=== PATIENT | female | born 1965 | race Caucasian/White ===

== ENCOUNTER 2023-04-19 18:38 | Emergency (ER) | payer BC, SELFPAY ==
[2023-04-19 18:40] VITALS: BP 184/103
[2023-04-19] MEDS: DECADRON 10 MG PO (19:06)
[2023-04-19 19:10] VITALS: BP 129/85
[2023-04-19 20:00] VITALS: BP 117/86
--- NOTE | 2023-04-19 20:31 | ED.GENMED ---
History of Present Illness
General
Chief Complaint: Allergic Reaction
Source: patient and spouse
Exam Limitations: none
Time Seen by Provider: 04/19/23 18:54
Nursing documentation reviewed up to this point in time: agreed with
Travel History
Have you had any contact with someone who has COVID-19?: No
Do you have any symptoms of coronavirus? Fever > 100 degrees, chills, cough, shortness of breath, sore throat, loss of taste or smell, muscle aches, or headache?: No
History of Present Illness
History of Present Illness:
57-year-old female and has been stung many times in the past but never had a reaction. She was stung directly on her lip through her face guard. Denies any trouble swallowing or breathing denies any lightheadedness denies any just diffuse rash.
Took Benadryl Claritin and famotidine prior to arrival. Presenting to the emergency department today with concerns of lip swelling that is been ongoing for 4 and half hours prior to arrival after being stung by a bee. She claims that she is a
Past History
Past History
ED Past Medical History: None
ED Past Surgical History: None
Social History
Tobacco: Non-smoker
Personal:
Living: with family
Review of Systems
Review of Systems
Allergies reviewed?: Yes
All Other Systems: ROS reviewed and negative except as documented in HPI and ROS
Phy Exam
Physical Exam
Physical Exam:
GENERAL: Alert , in no apparent distress
EYE: pupils equal and reactive
NECK: Supple, no significant adenopathy.
ENT: Swelling to the anterior upper lip no extension into the deeper oral mucosa no swelling of the tongue or posterior pharynx. Some mild swelling to zygomatic region. o/p clr, mmm.
CARDIAC: Regular rate and rhythm .
LUNGS: Clear breath sounds bilaterally, no acute respiratory distress, no wheezes/rales/rhonchi
ABDOMEN: Soft, without focal tenderness, no r/g, no cvat
NEUROLOGICAL: Alert and oriented, no focal neuro deficits
SKIN: Warm and dry, skin intact.
MUSCULOSKELETAL: No edema, well perfused.
PSYCH: Normal and appropriate interaction.
Course
Orders/Labs/Results
Orders:
Orders
04/19/23 19:01
Dexamethasone [Decadron] 10 mg PO NOW STA
Vital Signs
Initial and Last Documented VS:
Initial Vital Signs
Temp Pulse Resp BP Pulse Ox
98.2 F 75 18 184/103 98
04/19/23 18:40 04/19/23 18:40 04/19/23 18:40 04/19/23 18:40 04/19/23 18:40
Last Documented Vital Signs
Temp Pulse Resp BP Pulse Ox
98.2 F 75 18 184/103 98
04/19/23 18:40 04/19/23 18:40 04/19/23 18:40 04/19/23 18:40 04/19/23 18:40
MDM/Problems Addressed
MDM/Problems Addressed:
57-year-old female presenting to the emergency department today with concerns of lip swelling after being stung by bee directly on the lip. 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
This occurred roughly 6 hours prior to arrival and prior to my assessment. Patient generally well-appearing lungs are clear vital signs normal no lightheadedness blood pressure was elevated but improving here. Normal posterior pharynx no diffuse
rash no evidence of anaphylaxis at this time. Was given steroid and watched for another hour with improvement of symptoms. She otherwise appear stable for outpatient management advised for close outpatient follow-up and written for an EpiPen for
any potential subsequent exposures in the future.
*Critical Care Note
Total Time (30-74mins, 75-104mins- exclusive of procedures): Not Applicable
ED Attending Note
-
Portions of this chart may have been created with voice recognition software.� Occasional wrong word or��sound alike� substitutions may have occurred due to the inherent limitations of voice recognition software.
Discharge Plan
Departure
Patient Disposition: Home (Routine Discharge)
Date of Disposition: 04/19/23
Time of Disposition: 20:34
Patient with high blood pressure during this ER visit?: Yes
Condition: Good
Covid-19: Not Applicable
Discharge Problem:
Allergic reaction
Instructions: Insect Bites and Stings (DC), BLOOD PRESSURE
Prescriptions:
New
prednisone 20 mg tablet
40 mg PO DAILY 4 Days Qty: 8 0RF
famotidine 20 mg tablet
20 mg PO BID 4 Days Qty: 8 0RF
cetirizine [Zyrtec] 10 mg tablet
10 mg PO BID 4 Days Qty: 8 0RF
epinephrine [EpiPen 2-Dat] 0.3 mg/0.3 mL auto-injector
0.3 mg IM Q5-15M PRN (Reason: anaphylaxis) Qty: 2 0RF
No Action
nitrofurantoin monohyd/m-cryst 100 MG capsule
100 mg PO BID Qty: 14 0RF
omeprazole 40 MG capsule,delayed release(DR/EC)
40 mg PO DAILYPRN PRN (Reason: acid reflux)
multivitamin with folic acid [Tab-A-Julian] 1 TABLET tablet
1 tab PO DAILY
Referrals:
Jamie Mckee MD [Family Provider] -
Activity Restrictions/Additional Instructions:
You came to emergency department today with concerns of potential allergic reaction. You were given steroid here without worsening of symptoms. No signs of life-threatening symptoms at this time. Please take the medications as prescribed and have
epi pen available moving forward. Please closely for further assessment. Return to the emergency department for any worsening, new or concerning symptoms.
Interventions
Interventions:
*General Assessment Last Done: 04/19/23 19:10
[2023-04-19] MEDS: BENADRYL 50 MG PO (20:49)
== END 2023-04-19 20:55 | disposition home or self-care (01) ==
LOC: EMR 18:38
PROVIDERS: EMERGENCY PHYSICIAN Emergency Medicine; FAMILY PHYSICIAN Family Medicine
DX: T63.441A Toxic effect of venom of bees, accidental (unintentional), initial encounter (principal); R22.0 Localized swelling, mass and lump, head
CPT/HCPCS: 99283

== ENCOUNTER → 2023-06-20 07:20 | Outpatient (REF) | payer BC, SELFPAY | LOC: RAD 07:20 | PROVIDERS: ATTENDING PHYSICIAN Obstetrics & Gynecology; FAMILY PHYSICIAN Family Medicine | DX: N93.0 Postcoital and contact bleeding (principal) | CPT/HCPCS: 76830; 76856 ==

== ENCOUNTER 2023-09-24 09:35 | Emergency (ER) | payer BC, SELFPAY ==
[2023-09-24 09:37] VITALS: BP 150/97
--- NOTE | 2023-09-24 10:03 | ED.GENMED ---
History of Present Illness
General
Chief Complaint: Rabies
Source: patient
Time Seen by Provider: 09/24/23 09:52
History of Present Illness
History of Present Illness:
57-year-old female presenting to the emergency department for evaluation of possible rabies exposure noting last night while putting away a pool cover either a bird or bat flew out and in to her hair/head. Patient states it was dark out so she is
unsure as to what the animal was. She has no other concerns at this time. States she is concerned enough that it could have been a bat so would like rabies prophylaxis
Past History
Past History
ED Past Medical History: None
ED Past Surgical History: None
Social History
Tobacco: Non-smoker
Alcohol: Occasional
Drug: None
Personal:
Living: with family
Review of Systems
Review of Systems
All Other Systems: ROS reviewed and negative except as documented in HPI and ROS
Phy Exam
Physical Exam
Physical Exam:
GENERAL: Alert , in no apparent distress
EYE: conjunctiva clear
Head: Normocephalic atraumatic
NECK: Supple,
ENT: mmm.
LUNGS: no acute respiratory distress
NEUROLOGICAL: Alert and oriented
SKIN: Warm and dry, skin intact.
MUSCULOSKELETAL: well perfused.
PSYCH: Normal and appropriate interaction.
Scores
Heart Failure Risk
Heart Failure Risk Score: Not Applicable
Heart Score for Chest Pain Patients
STEMI patient?: Not applicable
Withdrawal Assessment of Alcohol
Withdrawal Assessment Completed?: Not applicable
Course
Orders/Labs/Results
Orders:
Orders
09/24/23 10:08
Rabies Immune Globulin/Pf [HyperRAB] 1,470 unit IM NOW STA
09/24/23 10:15
Rabies Vaccine (Pcec)/Pf [Rabavert Rabies Vacc W-Diluent] 2.5 unit IM .ONCE ONE
Vital Signs
Initial and Last Documented VS:
Initial Vital Signs
Temp Pulse Resp BP Pulse Ox
98 F 66 16 150/97 99
09/24/23 09:37 09/24/23 09:37 09/24/23 09:37 09/24/23 09:37 09/24/23 09:37
Last Documented Vital Signs
Temp Pulse Resp BP Pulse Ox
98 F 66 16 150/97 99
09/24/23 09:37 09/24/23 09:37 09/24/23 09:37 09/24/23 09:37 09/24/23 09:37
MDM/Problems Addressed
MDM/Problems Addressed:
Patient presenting to ER after possible bat exposure. Discussed at length risk vs benefit of immunization and patient ultimately decided to proceed with vaccination series. She was given print out of dates for remaining vaccines. Discussed return
precautions to ED. Otherwise stable for discharge home
*Pulse Oximetry
Patient hypoxic: no
*Critical Care Note
Total Time (30-74mins, 75-104mins- exclusive of procedures): Not Applicable
ED Attending Note
-
Portions of this chart may have been created with voice recognition software.� Occasional wrong word or��sound alike� substitutions may have occurred due to the inherent limitations of voice recognition software.
Discharge Plan
Departure
Patient Disposition: Home (Routine Discharge)
Date of Disposition: 09/24/23
Time of Disposition: 10:03
Patient with high blood pressure during this ER visit?: Yes
Discharge Problem:
Encounter for immunization
Instructions: Rabies Vaccine
Prescriptions:
No Action
nitrofurantoin monohyd/m-cryst 100 MG capsule
100 mg PO BID Qty: 14 0RF
omeprazole 40 MG capsule,delayed release(DR/EC)
40 mg PO DAILYPRN PRN (Reason: acid reflux)
multivitamin with folic acid [Tab-A-Julian] 1 TABLET tablet
1 tab PO DAILY
prednisone 20 mg tablet
40 mg PO DAILY 4 Days Qty: 8 0RF
famotidine 20 mg tablet
20 mg PO BID 4 Days Qty: 8 0RF
cetirizine [Zyrtec] 10 mg tablet
10 mg PO BID 4 Days Qty: 8 0RF
epinephrine [EpiPen 2-Dat] 0.3 mg/0.3 mL auto-injector
0.3 mg IM Q5-15M PRN (Reason: anaphylaxis) Qty: 2 0RF
Referrals:
Jamie Mckee MD [Family Provider] -
Stand Alone Forms: Rabies Vaccine Post Exp Dosing
Interventions
Interventions:
*Risk Screen - Suicide Last Done: 09/24/23 09:37
*General Assessment Last Done: 09/24/23 09:37
*Neglect/Abuse Screening Last Done: 09/24/23 09:37
ED- Fall Risk Assessment Last Done: 09/24/23 09:49
*ED COVID-19 Vaccine History Last Done: 09/24/23 09:49
*Nursing Disposition Last Done: 09/24/23 10:47
Discharge Date and Time
Discharge Date/Time: 09/24/23 10:47
Print Language: LIBERIAN
[2023-09-24] MEDS: HyperRAB 1470 UNIT IM (10:35)
[2023-09-24] MEDS: RABAVERT RABIES VACC W-DILUENT 2.5 UNIT IM (10:37)
== END 2023-09-24 10:47 | disposition home or self-care (01) ==
LOC: EMR 09:35
PROVIDERS: EMERGENCY PHYSICIAN Emergency Medicine; FAMILY PHYSICIAN Family Medicine
DX: Z23 Encounter for immunization (principal); Z20.3 Contact with and (suspected) exposure to rabies; R03.0 Elevated blood-pressure reading, without diagnosis of hypertension; Z88.1 Allergy status to other antibiotic agents
CPT/HCPCS: 99284; 90471; 96372; 90375; 90675

== ENCOUNTER 2023-10-07 14:31 | Outpatient (RCR) | payer BC, SELFPAY ==
[2023-09-27 14:36] VITALS: BP 132/79
[2023-09-27] MEDS: RABAVERT RABIES VACC W-DILUENT 2.5 UNIT IM (15:08)
[2023-09-30 14:06] VITALS: BP 131/86
[2023-09-30] MEDS: RABAVERT RABIES VACC W-DILUENT 2.5 UNIT IM (14:08)
[2023-10-07 14:36] VITALS: BP 114/77
[2023-10-07] MEDS: RABAVERT RABIES VACC W-DILUENT 2.5 UNIT IM (14:44)
== END 2023-10-08 23:59 | disposition home or self-care (01) ==
LOC: OID 14:31
PROVIDERS: ATTENDING PHYSICIAN Emergency Medicine; FAMILY PHYSICIAN Family Medicine
DX: Z23 Encounter for immunization (principal); Z20.3 Contact with and (suspected) exposure to rabies
CPT/HCPCS: 90471; 90675

== ENCOUNTER → 2023-11-15 15:22 | Outpatient (REF) | payer BC, SELFPAY | LOC: WDC 15:22 | PROVIDERS: ATTENDING PHYSICIAN Obstetrics & Gynecology; FAMILY PHYSICIAN Family Medicine | DX: Z12.31 Encounter for screening mammogram for malignant neoplasm of breast (principal) | CPT/HCPCS: 77063; 77067 ==

== ENCOUNTER → 2023-11-29 09:14 | Outpatient (REF) | payer BC, SELFPAY | LOC: RAD 09:14 | PROVIDERS: ATTENDING PHYSICIAN Physician Assistant; FAMILY PHYSICIAN Student in an Organized Health Care Education/Training Program | DX: M25.551 Pain in right hip (principal) | CPT/HCPCS: 73502 ==

== ENCOUNTER → 2024-05-14 07:38 | Outpatient (REF) | payer SELFPAY | LOC: HWRAD 07:38 | PROVIDERS: ATTENDING PHYSICIAN Student in an Organized Health Care Education/Training Program | DX: E78.2 Mixed hyperlipidemia (principal) | CPT/HCPCS: 75571 ==

== ENCOUNTER → 2024-11-14 08:14 | Outpatient (REF) | payer BC, SELFPAY | LOC: HWRAD 08:14 | PROVIDERS: ATTENDING PHYSICIAN Student in an Organized Health Care Education/Training Program | DX: R91.1 Solitary pulmonary nodule (principal) | CPT/HCPCS: 71250 ==

== ENCOUNTER → 2024-12-25 15:04 | Outpatient (REF) | payer BC, SELFPAY | LOC: WDC 15:04 | PROVIDERS: ATTENDING PHYSICIAN Obstetrics & Gynecology; FAMILY PHYSICIAN Student in an Organized Health Care Education/Training Program | DX: Z12.31 Encounter for screening mammogram for malignant neoplasm of breast (principal) | CPT/HCPCS: 77063; 77067 ==